=== PATIENT | male | born 1980 | race African-American/Black ===

== ENCOUNTER 2016-07-23 04:52 | Emergency (ER) | payer BC ==
[~2016-07-23] VITALS: Ht 195.6 cm; Wt 84.5 kg
[2016-07-23] MEDS ORDERED: PREDNISONE20 MG PO (08:44)
[2016-07-23] MEDS ORDERED: LIDODERM 5% P1 PATCH TD (08:44)
[2016-07-23 10:18] VITALS: BP 129/78
== END 2016-07-23 10:18 | disposition home or self-care (01) ==
LOC: EME 04:52
DX: M54.12 Radiculopathy, cervical region (principal); F17.200 Nicotine dependence, unspecified, uncomplicated
CPT/HCPCS: 72125; 99281; 99282